=== PATIENT | female | born 1975 | race Two or more races ===

== ENCOUNTER 2016-10-21 23:25 | Emergency (ER) | payer OTHER ==
--- NOTE | ~2016-10-21 | EKG ---
PATIENT: MARIANA MONREAL UNIT #: [id number] Ventricular Rate: 71 BPM Atrial Rate: 71 BPM P-R Interval: 156 ms QRS Duration: 82 ms Q-T Interval: 412 ms QTC Calculation(Bezet): 447 ms P [place]: 49 degrees Calculated R [place]: 63 degrees Calculated T [place]: 30 degrees Diagnosis Line: Normal sinus rhythm with sinus arrhythmia Diagnosis Line: Normal ECG Diagnosis Line: When compared with ECG of 16-FEB-2016 19:08, Diagnosis Line: QT has lengthened Diagnosis Line: Confirmed by TALHA AVALOS MD ([id number]) on Diagnosis Line: 10/22/2016 12:43:16 PM INTERPRETING MD: STEFFEN
[2016-10-21 22:39] LABS: BASOPHIL# 0.1 X10e3 (0-0.3); EOSINOPHIL# 0.3 X10e3 (0-0.7); HEMATOCRIT 44.5 % (35.0-45.0); HEMOGLOBIN 14.5 gm/dL (12.0-16.0); LYMPHOCYTE# 3.6 X10e3 (1.0-3.5); LYMPHOCYTE% 43.5 % (17.0-45.0); MEAN CELL VOLUME 90.6 FL (83-96); MEAN CORPUSCULAR HEMOGLOBIN 29.5 PG (28-34); MEAN CORPUSCULAR HGB CONC 32.6 g/dL (30-36); MEAN PLATELET VOLUME 10.5 FL (6.5-11.5); MONOCYTE# 0.5 X10e3 (0-1.0); MONOCYTE% 6.2 % (3.0-12.0); NEUTROPHIL# 3.7 X10e3 (1.5-7.1); NEUTROPHIL% 45.3 % (40-75); PLATELET COUNT 171 X10e3 (140-420); RED BLOOD COUNT 4.92 X10e (3.90-5.30); RED CELL DISTRIBUTION WIDTH 13.2 % (11.0-15.5); WHITE BLOOD COUNT 8.2 X10e3 (4.0-10.5)
[2016-10-21 22:43] LABS: DIFF IND NO
[2016-10-21 23:01] LABS: ALBUMIN SERUM 4.9 g/dL (3.5-5.0); BILIRUBIN,TOTAL 0.4 mg/dL (0.2-2.0); CALCIUM SERUM 9.6 mg/dL (8.4-10.2); CREATININE SERUM 0.6 mg/dL (0.6-1.4); GLOM FILT RATE Estimated 112.4 mL/min (>60); POTASSIUM 3.7 mmol/L (3.5-5.1); PROTEIN TOTAL SERUM 7.6 g/dL (6.0-8.3)
[2016-10-21 23:05] LABS: BILIRUBIN, DIRECT 0.1 mg/dL (0.0-0.2); BILIRUBIN,INDIRECT 0.3 mg/dL (0.0-0.9)
[~2016-10-21 23:25] MED LIST: AMOXICILLIN PO; AMOXICILLIN500 M1 PO; BACLOFEN10 MG PO; CLARITIN10 M2 PO; FLEXERIL PO; FLEXERIL10 MG PO; GABAPENTIN400 M2 PO; IBUPROFEN PO; IBUPROFEN800 MG PO; NAPROSYN500 MG PO; PERCOCET10 PO; PRAVACHOL20 MG PO; PRENATAL MULITV1 TAB; PRILOSEC2.5 MG PO; PRILOSEC40 MG PO; Q-PAP325 MG PO; ULTRAM PO; VIBRAMYCIN100 M1 PO; VICODIN 5/500 T1 TAB PO
[2016-10-21 23:29] LABS: URINE SOURCE CLEAN CATCH
[2016-10-21 23:37] LABS: URINE APPEARANCE TURBID; URINE BILIRUBIN NEG (NEG); URINE BLOOD NEG (NEG); URINE COLOR YELLOW; URINE GLUCOSE NEG (NEG); URINE KETONE TRACE (NEG); URINE LEUKOCYTE ESTERASE 3+ (NEG); URINE NITRATE NEG (NEG); URINE PH 5.5 (5-8); URINE PROTEIN NEG (NEG); URINE UROBILINOGEN 0.2 MG/DL (NEG)
[2016-10-21 23:40] LABS: CULTURE INDICATED? YES; URINE BACTERIA AUWI 4+ (NEGATIVE); URINE SQUAMOUS EPITHELIAL CELL MANY /[HPF]; UWBCS1 AUWI 25-50 (0-5)
[2016-10-21 23:47] LABS: URINE CRYSTALS CALCIUM OXALATE /[HPF]; URINE MUCUS PRESENT
== END 2016-10-21 23:39 | disposition home or self-care (01) ==
LOC: CED 23:25
PROVIDERS: Emergency Medicine
DX: G44.209 Tension-type headache, unspecified, not intractable (principal); R53.83 Other fatigue; F17.200 Nicotine dependence, unspecified, uncomplicated
CPT/HCPCS: 36415; 80048; 80076; 81003; 82947; 84703; 85025; 87086; 93005; 99283

== ENCOUNTER 2016-11-14 20:13 | Observation (INO) | payer OTHER ==
--- NOTE | ~2016-11-14 | HP ---
Unit #: [id number] #: [id number] Patient: MARIANA MONREAL [id number] [address] [address] [id number] I MR#: [id number] NAME: MARIANA MONREAL ROOM: 547 Age: 41 Sex: F Admission Date: 11/14/2016 : 1975 Attending Physician: Jabier Carmichael M.D. Primary Care Physician: [facility] HISTORY AND PHYSICAL ADMISSION DIAGNOSES 1. Chest pain. 2. Hypertension. 3. Diabetes. 4. Dyslipidemia. 5. Continues tobacco use. HISTORY OF PRESENT ILLNESS Ms. Monreal is a 41-year-old female with past medical history of diabetes, dyslipidemia, and hypertension, who apparently was not taking any of her medications due to financial difficulties and inability to afford them for the last several weeks. She comes to the emergency room with the complaints of chest pain and dizziness which was getting worse in the last three days. Also, reports some episodes of falling down. She complains of pain underneath the right and left breast, sometimes it radiates up to her neck. Exacerbating factors include deep inspiration, also accompanied with nausea and lightheadedness. Denies any cough, denies any fever, chills, vomiting, diarrhea, or abdominal pain. Denies any rangel syncopal episodes. PAST MEDICAL HISTORY Significant for: 1. History of hypertension. 2. Dyslipidemia. 3. Diabetes. 4. Tobacco use. PAST SURGICAL HISTORY Significant for: 1. Tubal ligation. 2. Ankle surgery. HOME MEDICATIONS Apparently, she was takin. Ibuprofen. 2. Seroquel. 3. Lipitor. 4. Gabapentin. 5. Remeron. 6. Metformin. SOCIAL HISTORY She continues to smoker, denies any alcohol or illicit drugs. Unit #: [id number] #: [id number] Patient: MARIANA MONREAL FAMILY HISTORY Unremarkable. PHYSICAL EXAMINATION VITAL SIGNS: BP 98/42, heart rate 59, respirations 18, temperature 99.8. GENERAL: She is 41-year-old female in no acute distress. HEENT: Head is atraumatic. Pupils equal, round, reactive to light and accommodation. Extraocular muscles are intact. Oropharynx is clear. NECK: Supple. No mass, no JVD, no bruits. LUNGS: Diminished at bases but generally clear. HEART: S1, S2. No murmurs. ABDOMEN: Soft, nontender, nondistended. LOWER EXTREMITIES: Without any significant cyanosis, clubbing, or edema. NEUROLOGIC: Patient grossly intact. No focal deficits. DIAGNOSTIC STUDIES LABORATORY: Chemistry significant for blood glucose 163, BUN 17, creatinine 0.5. White count 5.7, hemoglobin 12, hematocrit 38.5. IMAGING: Chest x-ray unremarkable. CT of the head without contrast normal. CARDIOVASCULAR: Cardiolite stress test was abnormal. ASSESSMENT AND PLAN 1. Chest pain, status post negative troponins. Status post evaluation per Cardiology with the abnormal stress test. Going for cardiac catheterization in the morning. 2. Hypertension. Currently on the low side, monitor closely. 3. Diabetes. Will cover with sliding scale for now. Check hemoglobin A1c. 4. Dyslipidemia. Will check lipid panel. Consider starting her statins. 5. GI and DVT prophylaxis. Started her on Lovenox yesterday which will be continued. Will add Protonix. Dictated by Mc Salvador/penny TD: 11/15/2016 18:12 JOB #: [id number] Unit #: [id number] #: [id number] Patient: MARIANA MONREAL HISTORY AND PHYSICAL Page 1 of 1 X Jeff Thomason MD HISTORY AND PHYSICAL
--- NOTE | ~2016-11-14 | CT71 ---
[facility] A Service of [facility] RADIOLOGY TEXT RESULTS PATIENT: MARIANA MONREAL LOCATION: [facility] : [birth year] UNIT #: [id number] AGE: [address]: Isra Costello DO SEX: F ORDER DR: [id number] [facility] [address] [place], [place] [address] [id number] E MR#: [id number] Acc #: [id number] NAME: MARIANA MONREAL : 1975 SEX: F STUDY DATE/TIME: 11/14/2016 21:41 UNIT: [facility] ROOM: STUDY DESCRIPTION: CT Head Wo Contrast Attending Physician: Isra Costello D.O. Ordering Physician: Isra Costello D.O. Primary Care Physician: [facility] MEDICAL IMAGING REPORT This report is preliminary unless electronic signature is present EXAM Head CT without contrast HISTORY Dizziness and weakness with headache for the past 3 days. COMPARISON 06/16/2011 TECHNIQUE Axial images were obtained without contrast. This CT exam was performed with one or more of the following radiation dose reduction techniques: automatic exposure control, adjustment of mA and/or kV according to patient size, and iterative reconstruction. FINDINGS Axial noncontrast images were obtained from the skull base to the vertex. Ventricular size and configuration are normal. There is no evidence of acute infarct or hemorrhage. There are no extra-axial fluid collections. No mass lesion or mass effect is seen. There are no skull fractures. IMPRESSION Normal noncontrast head CT. Dictated by... Micheal Wang M.D. THIS IS AN ELECTRONICALLY VERIFIED REPORT Micheal Wang M.D. at 11/14/2016 10:19 PM RUF/kamala [facility] A Service [facility] RADIOLOGY TEXT RESULTS PATIENT: MARIANA MONREAL LOCATION: [facility] : [birth year] UNIT #: [id number] AGE: [address]: Isra Costello DO SEX: F ORDER DR: TD: 11/14/2016 22:15 JOB #: [id number] MEDICAL IMAGING REPORT Page 1 of 1 COPY
--- NOTE | ~2016-11-14 | DS ---
Unit #: [id number] #: [id number] Patient: MARIANA MONREAL [id number] [address] [address] [id number] I MR#: [id number] NAME: MARIANA MONREAL ROOM: 54 Age: 41 Sex: F Admission Date: 11/14/2016 : 1975 Discharge Date: 11/16/2016 Attending Physician: Jabier Carmichael M.D. Primary Care Physician: Replaced By [facility]. DISCHARGE SUMMARY DISCHARGE DIAGNOSES 1. Chest pain, status post abnormal stress test which was followed by a cardiac catheterization which was unremarkable. Stable from cardiac standpoint to be discharged. 2. Hypertension. 3. Diabetes type 2. 4. Dyslipidemia. 5. Continued tobacco use. 6. Depression. 7. Chronic pain. CONSULTS DURING HOSPITAL STAY Dr. Carmichael, Cardiology. LABS, DIAGNOSTICS, AND PROCEDURES DURING HOSPITAL STAY 1. Chest x-ray and CT of the head unremarkable. 2. Cardiolite stress test which was abnormal. This was followed by a cardiac cath which was unremarkable. Patient also had a 2D echo which showed an EF of 60%. HISTORY OF PRESENT ILLNESS Please refer to History and Physical done by me for initial presentation on this female. ACTIVE PROBLEMS DIAGNOSED Chest pain, status post evaluation per Cardiology. Cardiac enzymes negative. Status post negative cardiac cath. Stable from Cardiology standpoint to be discharged. Hypertension. Continue lisinopril. Diabetes. Continue metformin. Hemoglobin A1c at 6.2. Outpatient followup with primary care. Dyslipidemia. Continue Lipitor which was increased per Cardiology to 80 mg daily. Continued tobacco use. She was counseled on the importance of quitting smoking throughout this hospitalization. Patient is to follow up with her primary care physician. DISCHARGE MEDICATIONS 1. Lisinopril 10 mg daily. 2. Pepcid 20 mg daily. Unit #: [id number] #: [id number] Patient: MARIANA MONREAL 3. Percocet 5/325 at 1 or 2 tablets p.o. q.4-6 p.r.n. 4. Gabapentin 400 mg t.i.d. 5. Mirtazapine 30 mg p.o. at bedtime. 6. Metformin 500 mg daily. 7. Seroquel 50 mg daily. 8. Lipitor 80 mg daily. 9. Aspirin 81 mg daily. DISPOSITION Going home. FOLLOWUP With primary care physician in two to three days. Dictated by..Mc Beth/avis TD: 11/16/2016 20:55 JOB #: [id number] DISCHARGE SUMMARY Page 1 of 1 X Jeff Thomason MD X DISCHARGE SUMMARY
--- NOTE | ~2016-11-14 | CR72 ---
[facility] A Service of [facility] & [facility] RADIOLOGY TEXT RESULTS PATIENT: MARIANA MONREAL LOCATION: [facility] : [birth year] UNIT #: [id number] AGE: [address]: Isra Costello DO SEX: F ORDER DR: [id number] [facility] [address] [place], [place] [address] [id number] P MR#: [id number] Acc #: [id number] NAME: MARIANA MONREAL : 1975 SEX: F STUDY DATE/TIME: 11/14/2016 21:20 UNIT: [facility] ROOM: STUDY DESCRIPTION: CR Chest Single View Portable Attending Physician: Isra Costello D.O. Ordering Physician: Isra Costello D.O. Primary Care Physician: [facility] MEDICAL IMAGING REPORT This report is preliminary unless electronic signature is present EXAM Chest x-ray portable. HISTORY Chest pain, congestion, short of air x3 days. No injury. COMMENT Single frontal portable view of the chest timed 21:20 on 11/14/2016 reviewed. There is prior from 02/16/2016. Heart size is normal. There is no acute-appearing parenchymal infiltrate, acute congestive heart failure, pleural effusion or pneumothorax. IMPRESSION No active disease. Dictated by... Luciana Ryan M.D. THIS IS AN ELECTRONICALLY VERIFIED REPORT Luciana Ryan M.D. at 11/14/2016 10:39 PM PRUDENCIO/kamala TD: 11/14/2016 21:56 JOB #: [id number] MEDICAL IMAGING REPORT Page 1 of 1 COPY
--- NOTE | ~2016-11-14 | EKG ---
PATIENT: MARIANA MONREAL UNIT #: [id number] Ventricular Rate: 70 BPM Atrial Rate: 70 BPM P-R Interval: 146 ms QRS Duration: 88 ms Q-T Interval: 414 ms QTC Calculation(Bezet): 447 ms P [place]: 59 degrees Calculated R [place]: 74 degrees Calculated T [place]: 45 degrees Diagnosis Line: Normal sinus rhythm with sinus arrhythmia Diagnosis Line: Normal ECG Diagnosis Line: When compared with ECG of 14-NOV-2016 20:31, Diagnosis Line: (unconfirmed) Diagnosis Line: No significant change was found Diagnosis Line: Confirmed by TALHA AVALOS MD ([id number]) on Diagnosis Line: 11/17/2016 7:37:35 AM INTERPRETING MD: STEFFEN
--- NOTE | ~2016-11-14 | ST ---
Unit #: [id number] #: [id number] Patient: MARIANA MONREAL [id number] [facility]. [address] [address] [id number] I MR#: [id number] NAME: MARIANA MONREAL : 1975 SEX: F STUDY DATE/TIME: 11/15/2016 UNIT: C5B ROOM: 547 STUDY DESCRIPTION: Stress Test Attending Physician: Jabier Carmichael M.D. Primary Care Physician: [facility]. CARDIOLOGY REPORT EXAM EKG portion of a Lexiscan Cardiolite stress test REASON FOR EXAM Chest pain. DISCUSSION Baseline EKG reveals sinus rhythm with a ventricular rate of 78 beats per minute. Possible early repolarization noted. Nonspecific ST and T-wave changes. Patient originally exercised on the treadmill for 1 minute and 10 seconds but complained of back pain and inability to walk. The patient was sat down and changed to Lexiscan. A total of 0.4 mg of Lexiscan was injected per protocol followed by Cardiolite. There were no complaints of chest pain. There were no sustained arrhythmias noted. There were no ST or T-wave changes to suggest ischemia. The maximal heart rate was 100 beats per minute with a maximal blood pressure of 132/87 mmHg. The test was stopped due to protocol completion. IMPRESSION 1. Negative EKG portion of Lexiscan Cardiolite stress test. 2. There were no complaints of chest pain. 3. There were no sustained arrhythmias noted. 4. There were no ST or T-wave changes to suggest ischemia. 5. Please correlate with Cardiolite images. Dictated by... Dana Shah APRN for Mc cMkeon/yony TD: 11/15/2016 15:52 JOB #: [id number] Unit #: [id number] #: [id number] Patient: MARIANA MONREAL CARDIOLOGY REPORT Page 1 of 1 X CARDIOLOGY REPORT
--- NOTE | ~2016-11-14 | TH ---
Unit #: [id number] #: [id number] Patient: MARIANA MONREAL [id number] [address] [address] [id number] I MR#: [id number] NAME: MARIANA MONREAL : 1975 SEX: F STUDY DATE/TIME: 11/15/2016 UNIT: C5B ROOM: 547 STUDY DESCRIPTION: Attending Physician: Jabier Carmichael M.D. Primary Care Physician: [facility] CARDIOLOGY REPORT EXAM Lexiscan Cardiolite stress test, nuclear portion. PROCEDURE Using technetium 99m labeled Cardiolite, rest and stress SPECT images were obtained. Multiple SPECT images were obtained in various views including horizontal and vertical long axis and short axis views of the left ventricle. Images were obtained by gated SPECT method. The patient was administered 10.1 mCi of Cardiolite at rest. Patient was administered 28.9 mCi of Cardiolite after Lexiscan infusion was completed. On the stress images, there is a small area of mild decreased isotope activity in the anteroapical wall. The rest images showed normal perfusion. Comparing rest and stress images, a small area of stress-induced ischemia involving the anteroapical wall of the left ventricle cannot be ruled out. The left ventricular ejection fraction is calculated to be 63%. There is no focal wall motion abnormality seen. CONCLUSION 1. A small area of possible stress-induced ischemia involving the anteroapical wall of the left ventricle cannot be ruled out. 2. The left ventricular ejection fraction is calculated to be 63%. 3. There is no focal wall motion abnormality seen. 4. Technically limited study. Clinical correlation is requested. Dictated by... Mc Mckeon TD: 11/15/2016 14:29 JOB #: [id number] Unit #: [id number] #: [id number] Patient: MARIANA MONREAL CARDIOLOGY REPORT Page 1 of 1 X Tomeka Robin MD <ELECTRONICALLY SIGNED> 01/20/17 1849 CARDIOLOGY REPORT
--- NOTE | ~2016-11-14 | EKG ---
PATIENT: MARIANA MONREAL UNIT #: [id number] Ventricular Rate: 78 BPM Atrial Rate: 78 BPM P-R Interval: 160 ms QRS Duration: 86 ms Q-T Interval: 386 ms QTC Calculation(Bezet): 440 ms P [place]: 49 degrees Calculated R [place]: 70 degrees Calculated T [place]: 37 degrees Diagnosis Line: Normal sinus rhythm Diagnosis Line: Normal ECG Diagnosis Line: When compared with ECG of 21-OCT-2016 23:10, Diagnosis Line: No significant change was found Diagnosis Line: Confirmed by ANDREY ZIMMER MD ([id number]) on 11/16/2016 Diagnosis Line: 10:32:45 AM INTERPRETING MD: MESHA MEDINA
--- NOTE | ~2016-11-14 | CO ---
Unit #: [id number] #: [id number] Patient: MARIANA MONREAL [id number] [address] [place], [place] [address] [id number] I MR#: [id number] NAME: MARIANA MONREAL ROOM: 54 Age: 41 Sex: F Admission Date: 11/14/2016 : 1975 Attending Physician: Jabier Carmichael M.D. Primary Care Physician: [facility] Consultation Date: 11/15/2016 CONSULTATION REPORT REASON FOR CONSULTATION Chest pain. HISTORY OF PRESENT ILLNESS This is a 41-year-old female with a past medical history of diabetes mellitus, hypertension, hyperlipidemia, tobacco abuse for 30 years. This patient presented to the ER with multiple complaints. Reports increasing dizziness for the past three days. States she has been dizzy off and on for several months and has a history of falls in the last year. She reports that she has been out of all of her medications for the past three to four months for financial reasons. Reports intermittent chest discomfort described as mid sternal burning as well as burning underneath her right and left breast. The discomfort is accompanied with occasional bile in the back of her throat and radiates upward into her throat. It comes at rest or with activity and she reports it is worse with deep breaths. In addition, she has nausea and lightheadedness with the pain. She denies a prior history of coronary artery disease or any prior testing for coronary artery disease. Her EKG and cardiac enzymes were negative for ischemia. We were asked to see her and evaluate her for chest pain. PAST MEDICAL HISTORY 1. Diabetes mellitus. 2. Hypertension. 3. Hyperlipidemia. 4. Tobacco abuse, one pack per day times 30 years. PAST SURGICAL HISTORY 1. Tubal ligation. 2. Left ankle surgery. HOME MEDICATIONS 1. Ibuprofen 400 mg q.i.d. 2. Seroquel 50 mg h.s. 3. Lipitor 40 mg p.o. daily. 4. Gabapentin 400 mg p.o. t.i.d. 5. Mirtazapine 30 mg p.o. h.s. 6. Metformin 500 mg p.o. daily. ALLERGIES No known drug allergies. SOCIAL HISTORY She lives with her and child. She does not work. She has been Unit #: [id number] #: [id number] Patient: MARIANA MONREAL without insurance until recently and has been unable to obtain her medications. FAMILY HISTORY Denies a history of premature coronary artery disease. REVIEW OF SYSTEMS Positive for dizziness, weakness, fatigue, intermittent chest pain, nausea. Reports pins and needles and burning feeling in her hands and feet. Otherwise, negative except for what was stated in the HPI. PHYSICAL EXAMINATION VITAL SIGNS: Temperature 97.9, heart rate 72, respiratory rate 18, blood pressure 104/67 to 82/45. She is 62 inches in height and weighs 74 kg. GENERAL: This is a 41-year-old female in no acute distress and resting in bed. Alert and oriented. HEENT: Head is atraumatic, normocephalic. Pupils are equal and round. Mucous membranes are moist. NECK: Supple. Trachea is midline. Negative for JVD. LUNGS: Coarse and diminished in bases. Nonlabored respirations. HEART: S1, S2. Regular rate and rhythm. Negative for murmur, rubs or gallops. ABDOMEN: Soft, nontender, nondistended. EXTREMITIES: Pulses are palpable. No pedal edema. No cyanosis. NEUROLOGIC: Alert and oriented x3. Moves all extremities equally and follows commands without difficulty. DIAGNOSTIC STUDIES LABORATORY: Sodium 138, potassium 3.7, chloride 111, BUN 17, creatinine 0.5, glucose 163. Hemoglobin 12, hematocrit 36.5, white blood cell count 5.7, platelets 159. POC troponin less than 0.05. Repeat troponin less than 0.03. Lipid profile cholesterol 147, triglycerides 113, LDL 100, HDL 24. Urinalysis with 3+ blood and glucose greater than 1000. IMAGING: CT of head was normal. Chest x-ray showed no active disease. CARDIOVASCULAR: EKG revealed normal sinus rhythm with a rate of 78. ASSESSMENT 1. Dizziness. 2. Chest pain, questionable epigastric pain. 3. Diabetes mellitus, uncontrolled. 4. Hypertension. 5. Gastroesophageal reflux disease. PLAN 1. Exercise Cardiolite stress test. 2. 2D echo. 3. Will check orthostatic blood pressures. 4. TSH. 5. Hemoglobin A1c. 6. The patient was advised on the importance of smoking cessation. Thank you for asking us to see this patient. We appreciate the consult. Unit #: [id number] #: [id number] Patient: MARIANA MONREAL Dictated by... Babs Gibson APRN for Mc Mckeon/penny TD: 11/15/2016 16:22 JOB #: [id number] CONSULTATION REPORT Page 1 of 1 X X CONSULTATION REPORT
[2016-11-14 20:37] LABS: BASOPHIL% 0.5 % (0-2.5); DIFF IND NO; EOSINOPHIL# 0.3 X10e3 (0-0.7); EOSINOPHIL% 3.4 % (0.0-7.0); HEMATOCRIT 39.1 % (35.0-45.0); HEMOGLOBIN 12.9 gm/dL (12.0-16.0); LYMPHOCYTE# 2.8 X10e3 (1.0-3.5); LYMPHOCYTE% 38.5 % (17.0-45.0); MEAN CELL VOLUME 89.7 FL (83-96); MEAN CORPUSCULAR HEMOGLOBIN 29.6 PG (28-34); MEAN PLATELET VOLUME 9.7 FL (6.5-11.5); MONOCYTE# 0.5 X10e3 (0-1.0); MONOCYTE% 7.2 % (3.0-12.0); NEUTROPHIL# 3.7 X10e3 (1.5-7.1); NEUTROPHIL% 50.4 % (40-75); PLATELET COUNT 185 X10e3 (140-420); RED BLOOD COUNT 4.36 X10e (3.90-5.30); WHITE BLOOD COUNT 7.3 X10e3 (4.0-10.5)
[2016-11-14 20:56] LABS: URINE SOURCE CLEAN CATCH
[2016-11-14 21:00] LABS: URINE APPEARANCE CLOUDY; URINE BILIRUBIN NEG (NEG); URINE BLOOD 3+ (NEG); URINE COLOR DK YELLOW; URINE GLUCOSE >1000 MG/DL (NEG); URINE KETONE TRACE (NEG); URINE LEUKOCYTE ESTERASE TRACE (NEG); URINE NITRATE NEG (NEG); URINE PH 5.5 (5-8); URINE PROTEIN NEG (NEG); URINE SPECIFIC GRAVITY 1.038 (1.003-1.035)
[2016-11-14 21:01] LABS: ALBUMIN SERUM 4.3 g/dL (3.5-5.0); ALKALINE PHOSPHATASE 44 U/L (32-92); ALT (SGPT) 17 U/L (10-40); AST (SGOT) 16 U/L (10-42); BILIRUBIN, DIRECT <0.1 mg/dL (0.0-0.2); BILIRUBIN,INDIRECT 0.5 mg/dL (0.0-0.9); BILIRUBIN,TOTAL 0.6 mg/dL (0.2-2.0); BLOOD UREA NITROGEN 20 mg/dL (9-23); BUN/CREATININE RATIO 33.33; CALCIUM SERUM 9.1 mg/dL (8.4-10.2); CARBON DIOXIDE 23 mmol/L (22-31); CHLORIDE 108 mmol/L (100-111); CREATININE SERUM 0.6 mg/dL (0.6-1.4); GLOM FILT RATE Estimated 111.6 mL/min (>60); GLUCOSE FASTING 147 mg/dL (70-110); POTASSIUM 3.3 mmol/L (3.5-5.1); PROTEIN TOTAL SERUM 6.8 g/dL (6.0-8.3); SODIUM 141 mmol/L (135-145)
[2016-11-14 21:03] LABS: CULTURE INDICATED? YES; URINE BACTERIA AUWI 3+ (NEGATIVE); URINE SQUAMOUS EPITHELIAL CELL MOD /[HPF]; UWBCS1 AUWI 25-50 (0-5)
[2016-11-14 21:39] LABS: POC - CKMB <1.0 ng/mL (0.0-7.9); POC - TROPONIN <0.05 ng/mL (<=0.05)
[2016-11-14 23:02] LABS: POC - CKMB <1.0 ng/mL (0.0-7.9); POC - TROPONIN <0.05 ng/mL (<=0.05)
[2016-11-14] MEDS ORDERED: SEROQUEL PO (23:44)
[2016-11-14] MEDS ORDERED: IBUPROFEN400 MG PO (23:44)
[2016-11-14] MEDS ORDERED: LIPITOR40 MG PO (23:46)
[2016-11-14] MEDS ORDERED: GABAPENTIN400 M2 PO (23:46)
[2016-11-14] MEDS ORDERED: MIRTAZAPINE30 M1 PO (23:47)
[2016-11-14] MEDS ORDERED: METFORMIN HCL500 M1 PO (23:48)
[2016-11-15 05:59] LABS: BASOPHIL% 0.7 % (0-2.5); EOSINOPHIL# 0.3 X10e3 (0-0.7); EOSINOPHIL% 5.6 % (0.0-7.0); HEMATOCRIT 36.5 % (35.0-45.0); LYMPHOCYTE# 2.4 X10e3 (1.0-3.5); LYMPHOCYTE% 41.2 % (17.0-45.0); MEAN CELL VOLUME 91.3 FL (83-96); MEAN CORPUSCULAR HGB CONC 32.9 g/dL (30-36); MONOCYTE# 0.5 X10e3 (0-1.0); MONOCYTE% 8.2 % (3.0-12.0); NEUTROPHIL# 2.5 X10e3 (1.5-7.1); NEUTROPHIL% 44.3 % (40-75); PLATELET COUNT 159 X10e3 (140-420); RED BLOOD COUNT 3.99 X10e (3.90-5.30); RED CELL DISTRIBUTION WIDTH 13.1 % (11.0-15.5); WHITE BLOOD COUNT 5.7 X10e3 (4.0-10.5)
[2016-11-15 06:06] LABS: DIFF IND NO
[2016-11-15 07:14] LABS: CALCIUM SERUM 8.3 mg/dL (8.4-10.2); CREATININE SERUM 0.5 mg/dL (0.6-1.4); GLOM FILT RATE Estimated 118.6 mL/min (>60); POTASSIUM 3.7 mmol/L (3.5-5.1)
[2016-11-15 14:39] LABS: CK TOTAL 48 IU/L (26-140)
[2016-11-16 06:20] LABS: HEMOGLOBIN 11.6 gm/dL (12.0-16.0); MEAN CELL VOLUME 91.3 FL (83-96); MEAN CORPUSCULAR HEMOGLOBIN 29.5 PG (28-34); MEAN CORPUSCULAR HGB CONC 32.3 g/dL (30-36); MEAN PLATELET VOLUME 10.8 FL (6.5-11.5); RED BLOOD COUNT 3.94 X10e (3.90-5.30); RED CELL DISTRIBUTION WIDTH 13.2 % (11.0-15.5); WHITE BLOOD COUNT 5.6 X10e3 (4.0-10.5)
[2016-11-16 06:59] LABS: PARTIAL THROMBOPLASTIN TIME 23.6 SECONDS (23.5-31.3); PROTHROMBIN TIME (PATIENT) 10.7 SECONDS (9.6-11.5)
[2016-11-16 07:24] LABS: CALCIUM SERUM 8.4 mg/dL (8.4-10.2); CREATININE SERUM 0.5 mg/dL (0.6-1.4); GLOM FILT RATE Estimated 118.6 mL/min (>60); POTASSIUM 4.4 mmol/L (3.5-5.1)
[2016-11-16] MEDS ORDERED: BAYER CHEWABLE81 MG PO (17:38)
[2016-11-16] MEDS ORDERED: ZESTRIL10 M1 PO (17:39)
[2016-11-16] MEDS ORDERED: ACID REDUCER20 MG PO (17:39)
[2016-11-16] MEDS ORDERED: PERCOCET 5/321 UDTAB PO (18:40)
== END 2016-11-16 19:50 | disposition home or self-care (01) ==
LOC: CED 20:13 → CEDOF 22:09 → C5B 23:45 → CEDOF 23:45 → CED 23:45 → C5B 11-15 00:01 → CEDOF 11-15 00:01 → CED 11-15 00:01 → C5B 11-15 04:51 → CEDOF 11-15 04:51 → C5B 11-16 19:50
PROVIDERS: Emergency Medicine; Hospitalist; Internal Medicine Cardiovascular Disease
DX: R07.89 Other chest pain (principal); E11.65 Type 2 diabetes mellitus with hyperglycemia; I10 Essential (primary) hypertension; R94.39 Abnormal result of other cardiovascular function study; Z79.84 Long term (current) use of oral hypoglycemic drugs; E78.5 Hyperlipidemia, unspecified; F17.210 Nicotine dependence, cigarettes, uncomplicated; F32.9 Major depressive disorder, single episode, unspecified; G89.29 Other chronic pain; K21.9 Gastro-esophageal reflux disease without esophagitis; R42 Dizziness and giddiness; Z98.51 Tubal ligation status
CPT/HCPCS: 36415; 70450; 71010; 78452; 80048; 80061; 80076; 81003; 82550; 82553; 82947; 83036; 84443; 84484; 84703; 85025; 85027; 85610; 85730; 87086; 93005; 93017; 93306; 96361; 96372; 96374; 99285; A9500; C1769; C1887; C1894; G0378; J1200; J1644; J1650; J2250; J2405; J2785; J2930; J3010

== ENCOUNTER 2017-03-15 17:39 | Emergency (ER) | payer OTHER ==
[~2017-03-15] VITALS: Ht 152.4 cm; Wt 74.4 kg
--- NOTE | ~2017-03-15 | EKG ---
PATIENT: MARIANA MONREAL UNIT #: [id number] Ventricular Rate: 80 BPM Atrial Rate: 80 BPM P-R Interval: 126 ms QRS Duration: 88 ms Q-T Interval: 386 ms QTC Calculation(Bezet): 445 ms P [place]: 46 degrees Calculated R [place]: 72 degrees Calculated T [place]: 25 degrees Diagnosis Line: Normal sinus rhythm Diagnosis Line: Normal ECG Diagnosis Line: When compared with ECG of 16-NOV-2016 05:35, Diagnosis Line: Nonspecific T wave abnormality now evident in Diagnosis Line: Anterior leads Diagnosis Line: Confirmed by KIRTI LOU MD ([id number]) on Diagnosis Line: 03/16/2017 11:35:55 AM INTERPRETING MD: DASHA MEDINA
--- NOTE | ~2017-03-15 | CR72 ---
[facility] A Service of [facility] & [facility] RADIOLOGY TEXT RESULTS PATIENT: MARIANA MONREAL LOCATION: [facility] : [birth year] UNIT #: [id number] AGE: [address]: Isra Costello DO SEX: F ORDER DR: [id number] [facility] [address] [place], [place] [address] [id number] E MR#: [id number] Acc #: [id number] NAME: MARIANA MONREAL : 1975 SEX: F STUDY DATE/TIME: 03/15/2017 20:51 UNIT: [facility] ROOM: STUDY DESCRIPTION: CR Chest Single View Portable Attending Physician: Isra Costello D.O. Ordering Physician: Isra Costello D.O. Primary Care Physician: [facility]. MEDICAL IMAGING REPORT This report is preliminary unless electronic signature is present EXAM Portable AP view of the chest. COMPARISON 02/14/2017 and 02/16/2016. INDICATION 41 old female with cough and chest pain for 4 months. FINDINGS Cardiomediastinal silhouette is normal. No evidence of pneumothorax, pleural effusion or acute airspace disease. IMPRESSION Normal exam. Dictated by... Augie Escobedo M.D. THIS IS AN ELECTRONICALLY VERIFIED REPORT Augie Escobedo M.D. at 03/20/2017 2:40 PM BLM/gz TD: 03/16/2017 09:05 JOB #: [id number] MEDICAL IMAGING REPORT Page 1 of 1 COPY
--- NOTE | ~2017-03-15 | CT71 ---
[facility] A Service of [facility] RADIOLOGY TEXT RESULTS PATIENT: MARIANA MONREAL LOCATION: [facility] : 71 UNIT #: [id number] AGE: [address]: Isra Costello DO SEX: F ORDER DR: [id number] [id number] [place], [place] [address] [id number] E MR#: [id number] Acc #: [id number] NAME: MARIANA MONREAL : 1975 SEX: F STUDY DATE/TIME: 03/15/2017 21:31 UNIT: [facility] ROOM: STUDY DESCRIPTION: CT Head Wo Contrast Attending Physician: Isra Costello D.O. Ordering Physician: Isra Costello D.O. Primary Care Physician: [facility] MEDICAL IMAGING REPORT This report is preliminary unless electronic signature is present EXAM CT head without IV contrast. COMPARISON November 14, 2016 and June 16, 2011. INDICATIONS 41-year-old female with headache and dizziness today. TECHNIQUE This CT exam was performed with one or more of the following radiation dose reduction techniques: Automatic exposure control, adjustment of mA and/or kV according to patient size, and iterative reconstruction. FINDINGS Mastoid air cells, middle ears and visualized paranasal sinuses are well-aerated. No acute fractures or suspicious osseous lesions. Normal cerebral volume. No mass effect. No abnormal extraaxial fluid collection. No acute intracranial hemorrhage. No evidence of acute ischemia. 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 IMPRESSION No acute intracranial abnormality. 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 This is unchanged from 2010. Dictated by... Augie Escobedo M.D. THIS IS AN ELECTRONICALLY VERIFIED REPORT [facility] A Service of [facility] RADIOLOGY TEXT RESULTS PATIENT: MARIANA MONREAL [id number] [birth year] UNIT #: [id number] AGE: [address]: Isra Costello DO SEX: F ORDER DR: Augie Escobedo M.D. at 03/20/2017 2:40 PM BLM/bd TD: 03/16/2017 08:51 JOB #: [id number] MEDICAL IMAGING REPORT Page 1 of 1 COPY
[~2017-03-15 17:39] MED LIST changes: +ACID REDUCER20 MG PO; +BAYER CHEWABLE81 MG PO; +IBUPROFEN400 MG PO; +LIPITOR40 MG PO; +METFORMIN HCL500 M1 PO; +MIRTAZAPINE30 M1 PO; +PERCOCET 5/321 UDTAB PO; +SEROQUEL PO; +ZESTRIL10 M1 PO
[2017-03-15 18:52] LABS: BASOPHIL% 0.6 % (0-2.5); EOSINOPHIL# 0.3 X10e3 (0-0.7); EOSINOPHIL% 3.9 % (0.0-7.0); HEMOGLOBIN 14.1 gm/dL (12.0-16.0); LYMPHOCYTE# 2.2 X10e3 (1.0-3.5); LYMPHOCYTE% 32.7 % (17.0-45.0); MEAN CELL VOLUME 90.5 FL (83-96); MEAN CORPUSCULAR HEMOGLOBIN 30.4 PG (28-34); MEAN CORPUSCULAR HGB CONC 33.6 g/dL (30-36); MEAN PLATELET VOLUME 10.5 FL (6.5-11.5); MONOCYTE# 0.5 X10e3 (0-1.0); MONOCYTE% 7.8 % (3.0-12.0); NEUTROPHIL# 3.7 X10e3 (1.5-7.1); PLATELET COUNT 179 X10e3 (140-420); RED BLOOD COUNT 4.64 X10e (3.90-5.30); RED CELL DISTRIBUTION WIDTH 13.8 % (11.0-15.5); WHITE BLOOD COUNT 6.7 X10e3 (4.0-10.5)
[2017-03-15 19:00] LABS: POC - CKMB <1.0 ng/mL (0.0-7.9); POC - TROPONIN <0.05 ng/mL (<=0.05)
[2017-03-15 19:02] LABS: URINE SOURCE CLEAN CATCH
[2017-03-15 19:07] LABS: URINE APPEARANCE CLOUDY; URINE BILIRUBIN NEG (NEG); URINE BLOOD NEG (NEG); URINE COLOR YELLOW; URINE GLUCOSE >1000 MG/DL (NEG); URINE KETONE TRACE (NEG); URINE LEUKOCYTE ESTERASE 2+ (NEG); URINE NITRATE NEG (NEG); URINE PROTEIN NEG (NEG); URINE SPECIFIC GRAVITY 1.033 (1.003-1.035)
[2017-03-15 19:10] LABS: CULTURE INDICATED? YES; URINE BACTERIA AUWI 2+ (NEGATIVE); URINE SQUAMOUS EPITHELIAL CELL MOD /[HPF]; UWBCS1 AUWI 25-50 (0-5)
[2017-03-15 19:12] LABS: ALBUMIN SERUM 4.4 g/dL (3.5-5.0); BILIRUBIN, DIRECT 0.1 mg/dL (0.0-0.2); BILIRUBIN,INDIRECT 0.6 mg/dL (0.0-0.9); BILIRUBIN,TOTAL 0.7 mg/dL (0.2-2.0); BUN/CREATININE RATIO 37.5; CALCIUM SERUM 9.1 mg/dL (8.4-10.2); CREATININE SERUM 0.4 mg/dL (0.6-1.4); GLOM FILT RATE Estimated 127.6 mL/min (>60); POTASSIUM 3.6 mmol/L (3.5-5.1); PROTEIN TOTAL SERUM 7.1 g/dL (6.0-8.3)
[2017-03-15 19:17] LABS: DIFF IND NO
[2017-03-15 21:31] LABS: POC - CKMB <1.0 ng/mL (0.0-7.9); POC - TROPONIN <0.05 ng/mL (<=0.05)
== END 2017-03-15 23:54 | disposition home or self-care (01) ==
LOC: CED 17:39
PROVIDERS: Emergency Medicine
DX: R42 Dizziness and giddiness (principal); N39.0 Urinary tract infection, site not specified; R07.9 Chest pain, unspecified; H54.7 Unspecified visual loss; F17.200 Nicotine dependence, unspecified, uncomplicated; E11.9 Type 2 diabetes mellitus without complications; E78.5 Hyperlipidemia, unspecified; I10 Essential (primary) hypertension; Z79.899 Other long term (current) drug therapy; Z79.82 Long term (current) use of aspirin
CPT/HCPCS: 36415; 70450; 71010; 80048; 80076; 81003; 82553; 82947; 83880; 84484; 85025; 85379; 87086; 93005; 94640; 96361; 96365; 96375; 99285; J0696; J2405